=== PATIENT | female | born 2000 | race Two or more races ===

== ENCOUNTER 2025-01-16 18:18 | Emergency (ER) | payer OTHER ==
[~2025-01-16] VITALS: Ht 165.1 cm; Wt 104.3 kg
[2025-01-16] MEDS ORDERED: CETIRIZINE HCL 5 MG/5 ML ML PO ONE (19:45)
[2025-01-16] MEDS ORDERED: DEXAMETHASONE SODIUM PHOSPHATE 4 MG/ML VIAL IM ONE (19:45)
[2025-01-16] MEDS ORDERED: CETIRIZINE HCL 5MG/5ML BLIST.PACK PO ONE (20:49)
[2025-01-16] MEDS ORDERED: DEXAMETHASONE SODIUM PHOSPHATE 4 MG/ML VIAL ONE (20:49)
[2025-01-16] MEDS ORDERED: ZYRTEC10 MG PO (21:50)
[2025-01-16] MEDS ORDERED: ATARAX25 MG PO (21:50)
== END 2025-01-16 22:26 | disposition home or self-care (01) ==
LOC: ER 18:19
DX: T78.49XA Other allergy, initial encounter (principal); Z91.013 Allergy to seafood; X58.XXXA Exposure to other specified factors, initial encounter; Z87.09 Personal history of other diseases of the respiratory system; Z88.8 Allergy status to other drugs, medicaments and biological substances; F41.9 Anxiety disorder, unspecified